=== PATIENT | female | born 1995 | race Caucasian/White ===

== ENCOUNTER 2020-12-04 16:36 | Emergency (ER) | payer OTHER ==
[2020-12-04 16:55] VITALS: RESP 18; TEMP 98.2
[2020-12-04] MEDS ORDERED: SODIUM CHLORIDE 0.9% 2,000 ML IV STA (16:55)
--- NOTE | 2020-12-04 16:57 | ED ---
Alcohol HPI - General Chief Complaint: Alcohol Stated Complaint: detox Time Seen by Provider: 12/04/20 16:41 Source: EMS Mode of arrival: EMS Limitations: altered mental status - History of Present Illness Initial Comments: 5-year-old female presents to the emergency department from [facility]. She went into [facility] today for cocaine and alcohol detoxification. She did have a breathalyzer test performed and had a level of 0.123. She was having difficulties with ambulation and therefore she was sent into the emergency room for detoxification. Patient admits to use of cocaine and alcohol. She is on several prescribe medications however denies abuse of any of these. Patient has unknown status. No other alleviating, precipitating or modifying factors - Related Data Allergies Allergy/AdvReac Type Severity Reaction Status Date / Time No Known Allergies Allergy Verified 12/04/20 16:58 Review of Systems ROS Statement: Those systems with pertinent positive or pertinent negative responses have been documented in the HPI. ROS Other: All systems not noted in ROS Statement are negative. General Exam Limitations: altered mental status General appearance: alert, appears intoxicated Head exam: Present: atraumatic, normocephalic, normal inspection Eye exam: Present: normal appearance, PERRL, EOMI. Absent: scleral icterus, conjunctival injection, periorbital swelling ENT exam: Present: normal exam, mucous membranes moist Neck exam: Present: normal inspection. Absent: tenderness, meningismus, lymphadenopathy Respiratory exam: Present: normal lung sounds bilaterally. Absent: respiratory distress, wheezes, rales, rhonchi, stridor Cardiovascular Exam: Present: regular rate, normal rhythm, normal heart sounds. Absent: systolic murmur, diastolic murmur, rubs, gallop, clicks GI/Abdominal exam: Present: soft, normal bowel sounds. Absent: distended, tenderness, guarding, rebound, rigid Extremities exam: Present: normal inspection, full ROM, normal capillary refill. Absent: tenderness, pedal edema, joint swelling, calf tenderness Back exam: Present: normal inspection Neurological exam: Present: altered, CN II-XII intact Skin exam: Present: warm, dry, intact, normal color. Absent: rash Course Vital Signs 12/04/20 12/04/20 16:47 19:53 Temperature 98.2 F Pulse Rate 95 114 H Respiratory 18 18 Rate Blood Pressure 120/74 111/80 O2 Sat by Pulse 99 94 L Oximetry Medical Decision Making - Medical Decision Making Upon arrival patient is placed in room 8. A thorough history and physical exam was performed. IV is established and the patient is given a liter bolus of normal saline. Laboratory studies are conducted. I did request a urine sample. Patient does consent to blood work. Laboratory studies are reviewed. AST 91, ALT 78. Alcohol 124. [place] is undetectable. I did discuss the diagnosis, differential and treatment options. Patient does not want to go back to [facility] at this time. She is awake, alert and capable of making her own decisions. She is requesting to go home at this time. She does call around to attempt to get a ride however unable to facilitate this. She is requesting discharge. We did recommend that she go back to [facility] however patient refused and is capable of refusing at this time. She did talk to her public service officer who told her it was okay for her to not go back. I recommended that she stop drinking. Patient is instructed to return for any new or worsening symptoms. She was discharged home in stable condition - Lab Data Result diagrams: 12/04/20 18:00 12/04/20 18:00 Lab Results 12/04/20 12/04/20 Range/Units 18:00 18:00 WBC 7.2 (3.8-10.6) k/uL RBC 4.82 (3.80-5.40) m/uL Hgb 14.0 (11.4-16.0) gm/dL Hct 43.4 (34.0-46.0) % MCV 90.0 (80.0-100.0) fL MCH 29.1 (25.0-35.0) pg MCHC 32.3 (31.0-37.0) g/dL RDW 14.7 (11.5-15.5) % Plt Count 128 L (150-450) k/uL MPV 15.4 Neutrophils % 35 % Lymphocytes % 49 % Monocytes % 4 % Eosinophils % 8 % Basophils % 1 % Neutrophils # 2.5 (1.3-7.7) k/uL Lymphocytes # 3.5 (1.0-4.8) k/uL Monocytes # 0.3 (0-1.0) k/uL Eosinophils # 0.6 (0-0.7) k/uL Basophils # 0.1 (0-0.2) k/uL Sodium 143 (137-145) mmol/L Potassium 3.9 (3.5-5.1) mmol/L Chloride 110 H (98-107) mmol/L Carbon Dioxide 23 (22-30) mmol/L Anion Gap 10 mmol/L BUN 10 (7-17) mg/dL Creatinine 0.81 (0.52-1.04) mg/dL Est GFR (CKD-EPI)AfAm >90 (>60 ml/min/1.73 sqM) Est GFR (CKD-EPI)NonAf >90 (>60 ml/min/1.73 sqM) Glucose 70 L (74-99) mg/dL Calcium 9.7 (8.4-10.2) mg/dL Total Bilirubin 0.4 (0.2-1.3) mg/dL AST 91 H (14-36) U/L ALT 78 H (4-34) U/L Alkaline Phosphatase 59 (38-126) U/L Total Protein 7.6 (6.3-8.2) g/dL Albumin 4.4 (3.5-5.0) g/dL [place] <0.2 mmol/L Serum Alcohol 124 mg/dL Disposition Clinical Impression: Alcohol intoxication Disposition: HOME SELF-CARE Condition: Stable Instructions (If sedation given, give patient instructions): Alcohol Intoxication (ED) Additional Instructions: Please stop drinking alcohol. We recommended that you go back to [facility]. Return to the ED for any new or worsening symptoms. Is patient prescribed a controlled substance at d/c from ED?: No Referrals: None,Stated [Primary Care Provider] - 1-2 days Time of Disposition: 19:52
[2020-12-04 18:12] LABS: Basophils # (A) 0.1 k/uL (0-0.2); Basophils % (A) 1 %; Eosinophils # (A) 0.6 k/uL (0-0.7); Eosinophils % (A) 8 %; HCT 43.4 % (34.0-46.0); Lymphocytes # (A) 3.5 k/uL (1.0-4.8); Lymphocytes % (A) 49 %; MCH 29.1 pg (25.0-35.0); MCHC 32.3 g/dL (31.0-37.0); Mean Platelet Volume 15.4; Monocytes # (A) 0.3 k/uL (0-1.0); Monocytes % (A) 4 %; Neutrophils # (A) 2.5 k/uL (1.3-7.7); Neutrophils % (A) 35 %; Platelet Count 128 k/uL (150-450); RBC 4.82 m/uL (3.80-5.40); RDW 14.7 % (11.5-15.5); WBC 7.2 k/uL (3.8-10.6)
[2020-12-04 18:23] LABS: ALT 78 U/L (4-34); AST 91 U/L (14-36); African American GFR (CKD) >90 (>60 ml/min/1.73 sqM); Albumin 4.4 g/dL (3.5-5.0); Alkaline Phosphatase 59 U/L (38-126); Anion Gap 10 mmol/L; Blood Urea Nitrogen 10 mg/dL (7-17); Calcium 9.7 mg/dL (8.4-10.2); Carbon Dioxide 23 mmol/L (22-30); Chloride 110 mmol/L (98-107); Glucose 70 mg/dL (74-99); Lithium <0.2 mmol/L; Non-African American GFR(CKD) >90 (>60 ml/min/1.73 sqM); Potassium 3.9 mmol/L (3.5-5.1); Sodium 143 mmol/L (137-145); Total Bilirubin 0.4 mg/dL (0.2-1.3); Total Protein 7.6 g/dL (6.3-8.2)
[2020-12-04 18:30] LABS: Alcohol 124 mg/dL
[2020-12-04 19:56] VITALS: BP 111/80; PULSE 114
== END 2020-12-04 20:30 | disposition home or self-care (01) ==
LOC: EC 16:36
DX: F10.129 Alcohol abuse with intoxication, unspecified (principal); Y90.6 Blood alcohol level of 120-199 mg/100 ml
CPT/HCPCS: 99284; 96360; 96361; 36415; 80053; 80178; 85025; G0480; 80320